=== PATIENT | female | born 1980 | race Caucasian/White ===

== ENCOUNTER → 2017-11-10 | Outpatient (REF) ==
[~2017-11-10] MED LIST: NEXIUM 40MG40 MG PO
== END ==
LOC: WSPT 12:24
DX: Z02.1 Encounter for pre-employment examination (principal)

== ENCOUNTER → 2020-02-06 | Outpatient (CLI) | payer OTHER | LOC: COL.RAD 08:12 | DX: M48.02 Spinal stenosis, cervical region (principal); M50.222 Other cervical disc displacement at C5-C6 level ==